=== PATIENT | female | born 1980 | race Caucasian/White ===

== ENCOUNTER 2020-08-11 10:24 | Emergency (ER) | payer OTHER | END 2020-08-11 10:35 | disposition home or self-care (01) | LOC: JVIRT 10:24 | DX: Z11.59 Encounter for screening for other viral diseases (principal) | CPT/HCPCS: C9803; Q3014-GT; U0003 ==

== ENCOUNTER 2020-08-18 12:28 | Emergency (ER) | payer OTHER | END 2020-08-18 13:22 | disposition home or self-care (01) | LOC: JVIRT 12:28 | DX: U07.1 COVID-19 (principal) | CPT/HCPCS: C9803; G2012-GT; U0003 ==